=== PATIENT | female | born 1990 | race Caucasian/White ===

== ENCOUNTER 2025-07-30 06:46 | Inpatient (IN) | payer OTHER ==
[2025-07-30] MEDS ORDERED: hydrALAZINE 20 MG/ML VIAL SLOW IVP PRN ×2 (08:06→08:07)
[2025-07-30] MEDS ORDERED: Lidocaine 1% (PF) 30 ML VIAL SC PRN (08:06)
[2025-07-30] MEDS ORDERED: HYDROcodone/Acetaminophen 5/325 mg Tablet PO PRN ×4 (08:06→08:07)
[2025-07-30] MEDS ORDERED: Ondansetron PF 4 MG/2 ML Vial IVP PRN (08:06)
[2025-07-30] MEDS ORDERED: Bisacodyl 10 MG SUPP PR PRN (08:07)
[2025-07-30] MEDS ORDERED: Milk Of Magnesia 30 ML UDCUP PO PRN (08:07)
[2025-07-30] MEDS ORDERED: diphenhydrAMINE 25 MG CAP PO PRN (08:07)
[2025-07-30] MEDS ORDERED: Oxytocin 30 units/NS 500 ML 500 ML IV SCH ×2 (08:15)
[2025-07-30 08:19] LABS: Hematocrit 38.4 % (34.9-44.5); Hemoglobin 13.2 g/dL (12.0-15.5); Mean Corpuscular Hemoglobin 32.7 pg (27.0-33.0); Mean Corpuscular Volume 95.0 fL (81.6-98.3); Platelet Count 174 10x3/uL (150-450); Red Blood Cell (RBC) Count 4.04 10x6/uL (3.90-5.03); White Blood Cell (WBC) Count 8.69 10x3/uL (3.5-10.5)
[2025-07-30 08:32] VITALS: BMI 30.7
[2025-07-30] MEDS: Ibuprofen 800 MG TAB PO PRN (08:48)
[2025-07-30 08:49] LABS: Hep B Surf Ag - L&D Non-Reactive S/CO (NonReactive)
[2025-07-30 09:28] LABS: Syphilis Antibody Index 0.07 S/CO (<1.00 Non-Reactive)
[2025-07-30] MEDS: Oxytocin 30 units/NS 500 ML 500 ML ONE (11:58)
[2025-07-30] MEDS: Lidocaine 1% (PF) 30 ML VIAL ONE (11:58)
[2025-07-30] MEDS: Tranexamic Acid 1,000 MG/10 ML VIAL ONE (13:10)
[2025-07-30] MEDS: Boostrix 0.5 ML (Tdap) VIAL (>/=7 yrs of age) IM ONE (13:10)
[2025-07-30] MEDS: Ferrous Sulfate 325 MG TAB PO SCH (13:11)
[2025-07-30] MEDS: Benzocaine-Menthol 82.5 ML CAN TOP PRN (14:43)
[2025-07-30] MEDS: Ibuprofen 800 MG TAB PO SCH (17:39)
[2025-07-31 11:27] VITALS: BP 114/76; TEMP 98.1
== END 2025-07-31 12:10 | disposition home or self-care (01) | DRG 807 ==
LOC: CSHLD/OP 06:46 → CSHLD 07:52 → CSHPED 12:50
PROVIDERS: ADMIT Obstetrics & Gynecology; ATTEND Obstetrics & Gynecology
PROC: 10E0XZZ Delivery of Products of Conception, External Approach (ICD-10-PCS; principal; 2025-07-30)
PROC: 0KQM0ZZ Repair Perineum Muscle, Open Approach (ICD-10-PCS; 2025-07-30)
PROC: 3E033VJ Introduction of Other Hormone into Peripheral Vein, Percutaneous Approach (ICD-10-PCS; 2025-07-30)
PROC: 3E0234Z Introduction of Serum, Toxoid and Vaccine into Muscle, Percutaneous Approach (ICD-10-PCS; 2025-07-30)
DX: O70.1 Second degree perineal laceration during delivery (principal); Z37.0 Single live birth; Z3A.39 39 weeks gestation of pregnancy; Z79.899 Other long term (current) drug therapy; Z23 Encounter for immunization
CPT/HCPCS: 36415; 85027; 86780; 86850; 86900; 86901; 87340; 99285; J2590